=== PATIENT | female | born 1940 | race Caucasian/White ===

== ENCOUNTER 2022-12-12 08:42 | Observation (INO) ==
[2022-12-12] MEDS ORDERED: Lactated Ringers 1000 ml BAG 1,000 ML IV ONE (08:51)
[2022-12-12 09:23] LABS: Activated Partial Thrombo Time 32.3 seconds (26.0-38.0); INR 1.22 (0.83-1.13)
[2022-12-12 09:27] LABS: Hematocrit 40.2 % (35-45); Hemoglobin 13.9 g/dL (11.5-14.3); Mean Corpuscular Hemoglobin 30.8 pg (27-33); Mean Corpuscular Hgb Conc 34.7 g/dL (31-36); Mean Corpuscular Volume 88.8 fL (80-97); Mean Platelet Volume 7.7 fL (7.5-11.2); Platelet Count 168 10^3/uL (150-450); Red Blood Count 4.52 10^6/uL (3.63-4.92); Red Cell Distribution Width 14.8 % (12-17); White Blood Count 7.7 10^3/uL (3.8-11.8)
[2022-12-12 09:40] LABS: Albumin 3.7 g/dL (3.2-5.2); Albumin/Globulin Ratio 1.4 (1-3); C Reactive Protein 15.23 mg/L (<8.01); Calcium 8.8 mg/dL (8.6-10.3); Creatinine, Serum 0.85 mg/dL (0.51-0.95); Globulin 2.7 g/dL (2-4); Potassium 2.9 mmol/L (3.5-5.0); Total Bilirubin 0.6 mg/dL (0.2-1.0); Total Protein 6.4 g/dL (6.4-8.9); eGFR CKD-EPI 69.2 (>60)
[2022-12-12 09:58] LABS: Magnesium 1.4 mg/dL (1.9-2.7)
[2022-12-12] MEDS ORDERED: Magnesium Sulf 4 GM/100 ML IV 4,000 MG/100 ML BAG IVPB ONE (10:38)
[2022-12-12 10:39] LABS: High Sensitivity Troponin 1 Hr 58 pg/mL (<15)
[2022-12-12] MEDS: KCL 20 MEQ/100 ML IVPREMIX 20 MEQ/100 ML BAG IV SCH ×2 (11:16→14:29)
[2022-12-12 11:58] LABS: RBC Morphology Normal (Normal)
[2022-12-12 11:59] LABS: ABS Neutrophils 6.2 10^3/ul (1.5-7.6)
[2022-12-12 12:00] LABS: ABS Monocytes 0.5 10^3/ul (0.0-0.9)
[2022-12-12] MEDS ORDERED: Albuterol HFA INHALER 8 gm MDI INH PRN (12:21)
[2022-12-12] MEDS: Psyllium PAK PO SCH (14:27)
[2022-12-12] MEDS: Aspirin EC 81 mg TAB.EC (enteric coated) PO SCH (14:27)
[2022-12-12 15:51] LABS: Urine Appearance Clear; Urine Bilirubin Negative (Negative); Urine Blood Negative (Negative); Urine Color Straw; Urine Glucose Negative (Negative); Urine Ketones Negative (Negative); Urine Nitrite Negative (Negative); Urine Protein Negative (Negative); Urine Specific Gravity 1.006 (1.002-1.030); Urine Urobilinogen Negative (Negative)
[2022-12-12] MEDS ORDERED: Potassium EFFERVES 25 meq TAB PO ONE (16:04)
[2022-12-12] MEDS ORDERED: Lactated Ringers 1000 ml BAG 500 ML IV ONE ×2 (16:07→22:09)
[2022-12-12] MEDS ORDERED: Ondansetron 4 mg VIAL 2 MG/ML 2 ml VIAL IV PRN (16:07)
[2022-12-12] MEDS: Mometasone/Formoter 100/5 MDI INH SCH (19:26)
[2022-12-12] MEDS: cefTRIAXone 1 gm/50 mL D5W 1 GM/50 ML BAG IV SCH (20:32)
[2022-12-12] MEDS: Azithromycin 500 mg/250 ml NS 500 MG/250 ML BAG IVPB SCH (21:22)
[2022-12-12 21:47] LABS: Calcium 8.6 mg/dL (8.6-10.3); Creatinine, Serum 0.73 mg/dL (0.51-0.95); Magnesium 2.1 mg/dL (1.9-2.7); Potassium 4.2 mmol/L (3.5-5.0); eGFR CKD-EPI 83.1 (>60)
[2022-12-13 05:53] LABS: Hematocrit 32.2 % (35-45); Hemoglobin 11.2 g/dL (11.5-14.3); Mean Corpuscular Hemoglobin 30.6 pg (27-33); Mean Corpuscular Hgb Conc 34.8 g/dL (31-36); Mean Platelet Volume 7.5 fL (7.5-11.2); Platelet Count 138 10^3/uL (150-450); Red Blood Count 3.67 10^6/uL (3.63-4.92); Red Cell Distribution Width 14.8 % (12-17); White Blood Count 12.9 10^3/uL (3.8-11.8)
[2022-12-13 06:12] LABS: Calcium 8.5 mg/dL (8.6-10.3); Creatinine, Serum 0.69 mg/dL (0.51-0.95); Magnesium 1.9 mg/dL (1.9-2.7); Potassium 3.8 mmol/L (3.5-5.0); eGFR CKD-EPI 87.7 (>60)
[2022-12-13 06:24] LABS: ABS Lymphocytes 0.9 10^3/uL (1.0-4.8); ABS Monocytes 0.4 10^3/uL (0.0-0.9); ABS Neutrophils 11.6 10^3/uL (1.5-7.6); Eosinophil % 0.3 %; Lymphocyte % 6.7 %
[2022-12-13] MEDS ORDERED: Metoprolol Tartrate 5 mg VIAL 5 ml VIAL (1 mg/ml) IV PRN (07:28)
[2022-12-13] MEDS: Mometasone/Formoter 100/5 MDI INH SCH ×3 (07:40→20:06)
[2022-12-13] MEDS: Psyllium PAK PO SCH (07:55)
[2022-12-13] MEDS: Aspirin EC 81 mg TAB.EC (enteric coated) PO SCH (07:55)
[2022-12-13] MEDS ORDERED: Potassium Chlor 20 meq TAB.ER PO ONE (08:00)
[2022-12-13] MEDS ORDERED: Magnesium Sulfate IV 1GM/100ML 1 GM/100 ML BAG IV ONE (08:00)
[2022-12-13] MEDS: cefTRIAXone 1 gm/50 mL D5W 1 GM/50 ML BAG IV SCH (17:50)
[2022-12-13] MEDS: Azithromycin 500 mg/250 ml NS 500 MG/250 ML BAG IVPB SCH (18:42)
[2022-12-14 06:40] LABS: ABS Eosinophils 0.1 10^3/uL (0.0-0.5); ABS Lymphocytes 1.1 10^3/uL (1.0-4.8); ABS Monocytes 0.4 10^3/uL (0.0-0.9); ABS Neutrophils 10.5 10^3/uL (1.5-7.6); ABS Nucleated RBC 0.01 10^3/ul; Eosinophil % 0.9 %; Hematocrit 31.2 % (35-45); Hemoglobin 10.9 g/dL (11.5-14.3); Mean Corpuscular Hemoglobin 30.8 pg (27-33); Mean Platelet Volume 7.8 fL (7.5-11.2); Nucleated Red Blood Cells % 0.1 /100 WBC (0.0-0.4); Platelet Count 146 10^3/uL (150-450); Red Blood Count 3.54 10^6/uL (3.63-4.92); White Blood Count 12.2 10^3/uL (3.8-11.8)
[2022-12-14 06:53] LABS: Calcium 8.5 mg/dL (8.6-10.3); Creatinine, Serum 0.72 mg/dL (0.51-0.95); Magnesium 1.8 mg/dL (1.9-2.7); Potassium 3.6 mmol/L (3.5-5.0); eGFR CKD-EPI 84.5 (>60)
[2022-12-14] MEDS: Mometasone/Formoter 100/5 MDI INH SCH (07:01)
[2022-12-14] MEDS ORDERED: Potassium Chlor 20 meq TAB.ER PO ONE (07:42)
[2022-12-14] MEDS ORDERED: Magnesium Sulfate IV 1GM/100ML 1 GM/100 ML BAG IV ONE (07:43)
[2022-12-14] MEDS: Aspirin EC 81 mg TAB.EC (enteric coated) PO SCH (08:02)
[2022-12-14] MEDS: Psyllium PAK PO SCH (08:02)
[2022-12-14 15:25] VITALS: BP 156/82
== END 2022-12-14 18:25 | disposition home or self-care (01) ==
LOC: EDHOLD 08:42 → ED 08:42 → SUATTDRO 11:28 → MEDTELE 15:06
PROVIDERS: ADMIT Internal Medicine; ATTEND Hospitalist